=== PATIENT | female | born 1985 | race Two or more races ===

== ENCOUNTER 2017-05-15 11:02 | Emergency (ER) | payer OTHER, BC ==
[~2017-05-15] VITALS: Ht 162.6 cm; Wt 69.4 kg
[2017-05-15] MEDS ORDERED: BACTRIM DS TAB1 EACH PO (12:49)
[2017-05-15] MEDS ORDERED: PROTONIX40 MG PO (12:49)
== END 2017-05-15 13:18 | disposition home or self-care (01) ==
LOC: ED 11:02
DX: R10.11 Right upper quadrant pain (principal); R10.13 Epigastric pain; N39.0 Urinary tract infection, site not specified
CPT/HCPCS: 80053; 81001; 82150; 83690; 84703; 85025; 96361; 96374; 96375; 99283; J1885; J2405; J7030